=== PATIENT | female | born 1985 ===

== ENCOUNTER → 2018-03-12 | Outpatient (CLI) | payer OTHER ==
--- NOTE | 2018-03-12 18:50 | CONS ---
CONSULTATION DATE OF SERVICE: 03/12/2018 Patient does not know the name of her primary care physician at the present time. This patient is a 32-year-old lady who has been evaluated in the sleep center for possible obstructive sleep apnea-hypopnea syndrome. HISTORY OF PRESENT ILLNESS/SLEEP-WAKE EVALUATION: Patient's usual sleep schedule is from midnight to 2 a.m. until 7:30 a.m., basically 7 days a week. Sometimes she has problems falling asleep for more than 30 minutes. Sometimes she falls asleep . She does have a TV set in the bedroom and she usually sleeps on the side position. She snores and has episodes of stopped breathing during sleep. During sleep she also grinds her teeth and has episodes of dry mouth, sleeptalking. Sometimes she says she sees dreams after closing her eyes; possible hypnagogic hallucinations. No history of sleep paralysis or cataplexy. She feels significantly sleepy sometimes during the day. [place] Sleepiness Scale is in extremely high range of 15. PAST MEDICAL HISTORY: 1. ADD in childhood. 2. History of sleepwalking as a teenager. PAST SURGICAL HISTORY: x2. MEDICATIONS: None at the present time. SOCIAL HISTORY: Negative for smoking. Alcohol consumption occasional. FAMILY HISTORY: Arthritis, asthma, sinus problems, bronchitis, lung problems, snoring, cancer, insomnia, restless legs. REVIEW OF SYSTEMS: Sleepiness during the day and sometimes difficulties in initiating sleep and maintaining sleep. PHYSICAL EXAMINATION: GENERAL A pleasant 32-year-old lady without distress. VITAL SIGNS: BP 104/68, HR 68, RR 16, height 5 feet 5 inches, weight 143.4, BMI 23.7. Neck 16 inches in circumference. Temperature 98.9. Oxygen saturation at room air 99% HEENT: PERRLA, EOMI. Evaluation of oropharynx showed tongue protrudes midline; moderately low position of soft palate. NECK: Supple. No JVD. Thyroid is not palpable. LUNGS: Clear to percussion and to auscultation. Good air exchange. No wheezing or rhonchi. HEART: S1, S2 regular. No murmurs, gallops or rubs. ABDOMEN: Soft and nontender. Bowel sounds are present. No organomegaly appreciated. EXTREMITIES : No clubbing or cyanosis. ARTISTS' MODEL: Awake, alert, and oriented X3. Cranial nerves 2 to 7 intact. There is no fasciculation or atrophy. noted. No focal deficits observed. IMPRESSION: 1. Snoring, witnessed episodes of stopped breathing during sleep, moderately low position of soft palate, wide neck 16 inches; obstructive sleep apnea-hypopnea syndrome. 2. Significant excessive daytime sleepiness. High [place] Sleepiness Scale of 15. Positive history of hypnagogic hallucinations. Differential diagnosis includes possibility of narcolepsy. 3. Allergy. 4. History of attention deficit disorder in childhood. 5. History of sleeptalking. 6. History of sleepwalking in the past. PLAN: 1. Polysomnography for evaluation of patient's breathing during sleep. 2. CPAP/BiPAP titration if sleep study confirms obstructive sleep apnea-hypopnea syndrome. 3. Preferable position during sleep on the side. 4. No driving if patient feels any sleepiness. Patient is aware of civil and criminal liability for unsafe driving. 5. I will see patient for follow-up visit to explain results of testing and following plan. 6. Multiple sleep latency test if sleep study is negative for obstructive sleep apnea- hypopnea syndrome. Sincerely, Ciaran Luna MD, PhD, FAASM Diplomat of [place] [employer] [place] [employer] Assistant Professor Of [employer] of [facility] [place] MMODL / ILIANAN: [id number] /
== END ==
LOC: MERGE 16:00 → SLEEP 16:08
PROVIDERS: ATTEND Internal Medicine
DX: G47.33 Obstructive sleep apnea (adult) (pediatric) (principal); R44.3 Hallucinations, unspecified; T78.40XA Allergy, unspecified, initial encounter; Z86.79 Personal history of other diseases of the circulatory system
CPT/HCPCS: 99211

== ENCOUNTER → 2019-05-28 | Outpatient (CLI) | payer OTHER ==
--- NOTE | 2019-05-28 10:53 | CT ---
EXAMINATION TYPE: CT neck chest w con DATE OF EXAM: 05/28/2019 COMPARISON: Outside CT abdomen and pelvis performed January 02, 2019 HISTORY: abn CT of abd, sore throat CT DLP: 582.7 mGycm. Automated Exposure Control for Dose Reduction was Utilized. TECHNIQUE: CT scan of the neck and thorax are performed following with IV Contrast, patient injected with 100 mL of Isovue 300. FINDINGS: NECK: Airway: No gross abnormality seen. Parotid/submandibular glands: No gross abnormality seen. Carotid/Vascular Structures: Unremarkable. Osseous Structures: Unremarkable. Other: No suspicious greater than 1 cm neck adenopathy. Some scattered prominent but subcentimeter ly mph nodes are seen throughout the neck bilaterally slightly larger on the right anterior to the carot id and jugular vessels axial image 50. There are 2 prominent adjacent lymph nodes just posterior to t he right submandibular gland. Parapharyngeal fat spaces are maintained bilaterally. CHEST: LUNGS: Mild biapical scarring. Stable 6 mm subpleural nodule anterior right middle lobe axial image 5 0. No additional concerning pulmonary nodules or masses. No pleural effusion or pneumothorax bilatera lly. No suspicious focal consolidation. MEDIASTINUM: There are no greater than 1 cm hilar or mediastinal lymph nodes. No cardiomegaly or pe ricardial effusion is seen. OTHER: No additional significant abnormality is seen. IMPRESSION: 1. Prominent but subcentimeter right greater than left neck lymph nodes. No significant findings seen to account for patient's symptoms of sore throat. 2. Stable 6 mm subpleural nodule right middle lobe. No additional nodules or adenopathy. Consider fol low-up CT in 6-12 months time to reassess to document stability.
== END | disposition home or self-care (01) ==
LOC: RADCTMAIN 07:16
PROVIDERS: ATTEND Family Medicine
DX: R13.13 Dysphagia, pharyngeal phase (principal); R91.1 Solitary pulmonary nodule; R59.9 Enlarged lymph nodes, unspecified
CPT/HCPCS: 70491; 71260; Q9967

== ENCOUNTER → 2019-06-03 | Outpatient (CLI) | payer OTHER ==
--- NOTE | 2019-06-04 07:21 | US ---
EXAMINATION TYPE: US pelvic complete DATE OF EXAM: 06/03/2019 COMPARISON: NONE CLINICAL HISTORY: R93.[address] of abdomen. Abnormal CT. Pain left pelvic area. HX 2 C-Sections. Tubal ligation. Hx ovarian cyst. . TECHNIQUE: Transabdominal (TA). Date of LMP: 05/27/2019 EXAM MEASUREMENTS: Uterus: 10.1 x 5.4 x 4.5 cm Endometrial Stripe: 0.73 cm Right Ovary: 3.7 x 2.2 x 2.2 cm Left Ovary: 3.0 x 2.5 x 1.6 cm 1. Uterus: Anteverted Anechoic area seen in the high cervix measuring 0.7 x 0.9 x 0.7, simple nabo thian cysts. 2. Endometrium: appears wnl 3. Right Ovary: Follicles seen. Largest measures: 1.3 x 1.8 x 1.2 cm. Limited venous evaluation. 4. Left Ovary: appears wnl, follicles seen Pulsed-Wave Doppler performed due to patient having left-sided pain. Limited evaluation of right venous waveform possibly due to depth of ovary. 5. Bilateral Adnexa: appear wnl 6. Posterior cul-de-sac: Trace amount of fluid IMPRESSION: 1. Limited evaluation for ovarian torsion as the ability to obtain waveforms is suboptimal on the lef t, however flow is identified to both ovaries and there is no asymmetric enlargement of the left ovar y. Torsion is considered unlikely. 2. Trace amount of free fluid in the posterior cul-de-sac, likely physiologic. Bilateral physiologic follicles without dominant cyst.
== END | disposition home or self-care (01) ==
LOC: RADUSMAIN 18:11
PROVIDERS: ATTEND Family Medicine
DX: R93.5 Abnormal findings on diagnostic imaging of other abdominal regions, including retroperitoneum (principal)
CPT/HCPCS: 76856

== ENCOUNTER 2021-08-15 12:20 | Emergency (ER) | payer OTHER ==
[2021-08-15 13:41] VITALS: RESP 18; TEMP 98
[2021-08-15] MEDS ORDERED: KETOROLAC 15 MG/ML 1 ML VIAL IM STA (15:09)
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
--- NOTE | 2021-08-15 16:03 | CT ---
EXAMINATION TYPE: CT thoracic spine wo con DATE OF EXAM: 08/15/2021 COMPARISON: None HISTORY: Pain CT DLP: 761.6 mGycm Automated exposure control for dose reduction was used. FINDINGS: Vertebral body height and disc interspaces are maintained. Curvature of the spine noted. Assessment spinal canal is nondiagnostic due to resolution. If there is concern for disc herniation c orrelate with MRI. Vertebral body height and disc interspace maintained. No compression deformities. IMPRESSION: NO ACUTE FRACTURE CORRELATE WITH MRI CLINICALLY WARRANTED.
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
[2021-08-15] MEDS ORDERED: HYDROcodone/APAP 7.5-325MG 1 EACH TAB PO ONE (17:14)
[2021-08-15 18:17] VITALS: BP 123/89; PULSE 88
== END 2021-08-15 18:32 | disposition home or self-care (01) ==
LOC: EC 12:20
DX: M54.2 Cervicalgia (principal); J45.909 Unspecified asthma, uncomplicated; F31.9 Bipolar disorder, unspecified; F43.12 Post-traumatic stress disorder, chronic; F17.290 Nicotine dependence, other tobacco product, uncomplicated; Z88.5 Allergy status to narcotic agent; Z88.0 Allergy status to penicillin
CPT/HCPCS: 99284; 96372; 72170; 72128; 72125; 70450; L0120; J1885

== ENCOUNTER → 2022-03-29 | Outpatient (CLI) | payer OTHER ==
--- NOTE | 2022-03-29 17:38 | P.SLEEP ---
History of Present Illness DATE: 03/29/2022 CONSULTATION/NEW PATIENT EVALUATION HISTORY OF PRESENT ILLNESS/SLEEP-WAKE EVALUATION: 36 year old lady had been evaluated in the sleep center for possible obstructive sleep apnea hypopnea syndrome. Patient has history of obstructive sleep apnea diagnosed in 2018, but for different reasons she never started to use CPAP treatment. SLEEP SCHEDULE: Usually sleep schedule on weekdays from 1112 until 6:30 AM, during days off from 2 AM until 7:30 AM. FALLING ASLEEP: Patient does have problems with the falling to sleep, has TV set in bedroom. DURING SLEEP: Patient snores has episodes sleep apnea during his sleep, awakenings from sleep 3 times and 2 times with nocturia. History of sleep walking in the past No history of hypnogogical hallucinations, sleep paralysis, or cataplexy. DURING THE DAY/WAKE STATE: In the morning patient wake up tired, has difficulties to plate tension, worry about his sleepiness problem with memory, concentration, irritability, depression, anxiety. [place] sleepiness scale is increased to 12. Usually patient doesn't take naps. PAST MEDICAL HISTORY: ADHD, ALLERGY, asthma, Covid19 2 with pneumonia. PAST SURGICAL HISTORY: C-sections 2. MEDICATIONS: Montelucast , albuterol, Nasacort. SOCIAL HISTORY: Occasional smoking, alcohol consumption occasional. FAMILY HISTORY: Hypertension, heart problems, cancer, snoring. REVIEW OF SYSTEMS: Loud snoring, multiple awakenings from sleep, sleepiness during the day. No fevers. No double vision. No recent chest pain. No shortness of breath. No abdominal pain. No bleeding episodes. No blood in urine. No seizure episodes. PHYSICAL EXAMINATION: GENERAL: A pleasant patient without any distress. VITAL SIGNS: BP 129/76 , HR 78 , RR 16 , weight 160 pounds, height 5 foot 5 three quarter inches, body mass index 25.8 . HEENT: PERRLA, EOMI. Evaluation of oropharynx showed tongue protrudes midline, low position of soft palate Mallampati 3. NECK: Supple. No JVD. Thyroid is not palpable. 15 inches in circumference. LUNGS: Clear to percussion and to auscultation. Good air exchange. No wheezing or rhonchi. HEART: S1, S2 regular. No murmurs, gallops or rubs. ABDOMEN: Soft and nontender. Bowel sounds are present. No organomegaly appreciated. EXTREMITIES: No clubbing or cyanosis. MAITRE D': Awake, alert, and oriented x3. Cranial nerves 2 to 7 intact. There is no fasciculation or atrophy noted. No focal deficits observed. ASSESSMENT: 1. Loud snoring, multiple awakenings from sleep, small oropharyngeal air space. History of obstructive sleep apnea documented in 2018. Obstructive sleep apnea hypopnea syndrome. 2. History of ADHD. 3 asthma. 4. History of sleep walking in the past. 5 ALLERGY. 6. Sinuses problem. 7. Status post Covid 192 with pneumonia. 8. Status post 2. PLAN: 1. Polysomnography for evaluation of patient's breathing during sleep. 2. CPAP/BiPAP titration if sleep study confirms obstructive sleep apnea- hypopnea syndrome. 3. Preferable position during sleep on the side. 4. No driving if patient feels any sleepiness. Patient is aware of civil and criminal liability for unsafe driving. 5. Sleep hygiene with regular sleep time for at least 7.5-8 hours. 6. Watching weight. Thank you very much for referring this patient for consultation. Sincerely, Ciaran Luna MD, PhD, FAASM. Diplomat of [place] [employer], Sleep Medicine Board by [place] [employer] [employer] [facility] [place] Past Medical History Past Medical History: Asthma History of Any Multi-Drug Resistant Organisms: None Reported Past Surgical History: Section Past Psychological History: Bipolar, PTSD Smoking Status: Light tobacco smoker Past Alcohol Use History: Occasional Past Drug Use History: None Reported Medications and Allergies Home Medications Medication Instructions Recorded Confirmed Type HYDROcodone/APAP 5-325MG [[place] 1 tab PO Q6HR PRN 3 Days #12 tab 08/15/21 Rx 5-325] Allergies Allergy/AdvReac Type Severity Reaction Status Date / Time codeine Allergy Unknown Verified 08/15/21 13:42 Childhood amoxicillin AdvReac Unknown Verified 08/15/21 13:42 Childhood ampicillin AdvReac Unknown Verified 08/15/21 13:42 Childhood Penicillins AdvReac Unknown Verified 08/15/21 13:42 Childhood Sleep Note - Sleep Note Sleep Note: Temperature: Pulse Rate: Respiratory Rate: Blood Pressure: SpO2: Height: Weight: BMI: Neck Circumference:
== END ==
LOC: SLEEP 15:46
PROVIDERS: ATTEND Internal Medicine
DX: G47.33 Obstructive sleep apnea (adult) (pediatric) (principal); J45.909 Unspecified asthma, uncomplicated; T78.40XA Allergy, unspecified, initial encounter; Z86.16 Personal history of COVID-19; Z87.59 Personal history of other complications of pregnancy, childbirth and the puerperium; F90.9 Attention-deficit hyperactivity disorder, unspecified type; J34.9 Unspecified disorder of nose and nasal sinuses; Z88.5 Allergy status to narcotic agent; Z88.1 Allergy status to other antibiotic agents; Z88.0 Allergy status to penicillin
CPT/HCPCS: 99211